=== PATIENT | female | born 1955 | race Caucasian/White ===

== ENCOUNTER 2016-07-05 18:14 | Emergency (ER) | payer OTHER ==
[2016-07-05 18:39] LABS: URINE MUCUS NONE SEEN (Up to 25%)
[2016-07-05 18:50] LABS: URINE APPEARANCE CLEAR; URINE COLOR YELLOW; URINE LEUKOCYTE ESTERASE TRACE (NEGATIVE); URINE NITRITE NEGATIVE (NEGATIVE); URINE PROTEIN NEGATIVE (NEG - TRACE)
[2016-07-05 18:51] LABS: URINE BACTERIA <10 ORGANISMS/hpf (<10/hpf); URINE BILIRUBIN NEGATIVE (NEGATIVE); URINE BLOOD TRACE (NEGATIVE); URINE GLUCOSE NORMAL (NEGATIVE); URINE KETONE NEGATIVE (NEGATIVE); URINE RBC 0-5/hpf (0-5/hpf); URINE SQUAMOUS EPITHELIAL CELL 0-5/hpf (<= 15/hpf); URINE UROBILINOGEN 0.2mg/dL (Normal) (NEG-1mg/dL); URINE WBC 0-4/hpf (0-4/hpf)
[2016-07-05] MEDS ORDERED: PHENAZOPYRIDINE 100 MG TABLET PO ONE (18:57)
[2016-07-05] MEDS ORDERED: NITROFURANTOIN MACROCRYSTAL 100 MG CAPSULE PO ONE (18:57)
--- NOTE | 2016-07-05 19:00 | ER NURSING DOCUMENTATION ---
Nurse's Notes [facility] Name:Afua Lanier Age:61 yrs Sex:Female :1955 Arrival Date:07/05/2016 Time:18:14 Bed3 Private MD:Kim Tavarez Diagnosis:Bladder Infection (UTI) Presentation: 07/05 18:23 Presenting complaint: Patient states: pt has left flank pain with urinary urgency. st Transition of care: Home. 18:23 Acuity: ROSE MARIE 3 st 18:23 Method Of Arrival: Private Vehicle st Historical: - Allergies: Sulfa (Sulfonamide Antibiotics); - Home Meds: 1. Zoloft Oral 2. CoQ-10 oral 3. multivitamin with minerals oral - PMHx: None; - PSHx: APPENDECTOMY; - Tetanus: > 10 years. - Ebola Screening: : Patient denies exposure to infectious person. Patient denies travel to an Ebola-affected area in the 21 days before illness onset. . - Social history: Smoking status: Patient states was never smoker of tobacco. Patient uses alcohol Patient/guardian denies using marijuana. Screenin:33 Infectious Disease Risk None. Abuse screen: Denies threats or abuse. Denies injuries st from another. pt feels safe at home. Nutritional screening: No deficits noted. Vital Signs: 18:20 BP 147 / 81; Pulse 79; Resp 12; Temp 98.8(O); Pulse Ox 89% on R/A; Weight 74.84 kg (R); arc Height 5 ft. 4 in. (162.56 cm) (R); Pain 5/10; 18:20 Body Mass Index 28.32 (74.84 kg, 162.56 cm) arc ED Course: 18:15 Patient arrived in ED. lm3 18:15 Kim Tavarez MD is Private Physician. lm3 18:23 Elyssa Sharma RN is Primary Nurse. st 18:[address] 18:29 Urine collected. Clean catch specimen. st 18:31 Beck Teixeira MD is Attending Physician. sc 18:33 Valuables Remains with patient Patient has correct armband on for positive st identification. Placed in gown. 18:47 Kim Tavarez MD is Referral Physician. sc Administered Medications: 18:47 Drug: Macrodantin 100 mg; Route: PO; st 18:58 Follow up: Response: Medication administered at discharge. st 18:47 Drug: Pyridium 200 mg; Route: PO; st 18:58 Follow up: Response: Medication administered at discharge. st 18:58 Drug: Macrodantin 100 mg; Route: PO; st 18:58 Follow up: Response: Pharmacy closed - take home med pack st 18:58 Drug: Pyridium 200 mg; Route: PO; st 18:59 Follow up: Response: Pharmacy closed - take home med pack Point of Care Testing: Urine Dip: 18:35 pH: 5.0; ; Specific [place]: 1.020; Ketones: Negative; Glucose: Negative; Protein: st Negative; Leukocytes: Trace; Nitrite: Negative ; Blood: Non Hemolyzed Trace; Bilirubin: Negative ; Urobilinogen: Normal Outcome: 18:48 Discharge ordered by . dc 18:59 Discharged to home ambulatory. st 18:59 Condition: stable 18:59 Discharge instructions given to patient, Instructed on discharge instructions, follow up and referral plans. medication usage, Prescriptions given X 1. 18:59 Patient [address] the ED. st Signatures: Elyssa Sharma, Beck Gaytan RN, MD MD dc Allyson Teixeira, Tushar Reg arc Jessica Kelly lm3
--- NOTE | 2016-07-05 19:00 | ER PHYSICIAN DOCUMENTATION ---
Physician Documentation [facility] Name:Afua Lanier Age:61 yrs Sex:Female :1955 Arrival Date:07/05/2016 Time:18:14 Bed3 Private MD:Kim Tavarez EDmaniBeck Disposition: 07/05/16 18:48 Discharged to Home/Self Care. Impression: Bladder Infection (UTI). - Condition is Good. - Discharge Instructions: BLADDER INFECTION, Female (Adult). - Prescriptions for Macrobid 100 mg Oral Capsule - take 100 milligram by ORAL route every 12 hours for 10 days; 20 capsule. - Medical Reconciliation form form. - Follow up: Kim Tavarez MD; When: 1 week; Reason: Recheck today's complaints. - Problem is new. - Symptoms are unchanged. HPI: 07/05 18:45 This 61 yrs old Female presents to ER via Private Vehicle with complaints of sc dysuria. 18:45 The patient presents with flank pain, urinary symptoms, dysuria, incontinence, urgency. sc Onset: The symptoms/episode began/occurred today. Associated signs and symptoms: The patient has no apparent associated signs or symptoms, Pertinent negatives: fever, vomiting. Severity of symptoms: At their worst the symptoms were moderate. Historical: - Allergies: Sulfa (Sulfonamide Antibiotics); - Home Meds: 1. Zoloft Oral 2. CoQ-10 oral 3. multivitamin with minerals oral - PMHx: None; - PSHx: APPENDECTOMY; - Tetanus: > 10 years. - Ebola Screening: : Patient denies exposure to infectious person. Patient denies travel to an Ebola-affected area in the 21 days before illness onset. . - Social history: Smoking status: Patient states was never smoker of tobacco. Patient uses alcohol Patient/guardian denies using marijuana. ROS: 18:46 Positive for urinary symptoms, flank pain. sc 18:46 Constitutional: Negative for fever, chills, and weight loss. sc Eyes: Negative for injury, pain, redness, and discharge. Cardiovascular: Negative for chest pain, palpitations, and edema. Respiratory: Negative for shortness of breath, cough, wheezing, and pleuritic chest pain. Abdomen/GI: Negative for abdominal pain, nausea, vomiting, diarrhea, and constipation. Back: Negative for injury and pain. Skin: Negative for injury, rash, and discoloration. 18:46 Neuro: Negative for headache, weakness, numbness, tingling, and seizure. Exam: Constitutional: This is a well developed, well nourished patient who is awake, alert, and in no acute distress. Head/Face: Normocephalic, atraumatic. Eyes: Pupils equal round and reactive to light, extra-ocular motions intact. Lids and lashes normal. Conjunctiva and sclera are non-icteric and not injected. Cornea within normal limits. Periorbital areas with no swelling, redness, or edema. Chest/axilla: Normal chest wall appearance and motion. Nontender with no deformity. No lesions are appreciated. Cardiovascular: Regular rate and rhythm with a normal S1 and S2. No gallops, murmurs, or rubs. Normal PMI, no JVD. No pulse deficits. Respiratory: Lungs have equal breath sounds bilaterally, clear to auscultation and percussion. No rales, rhonchi or wheezes noted. No increased work of breathing, no retractions or nasal flaring. Back: No spinal tenderness. No costovertebral tenderness. Full range of motion. Skin: Warm, dry with normal turgor. Normal color with no rashes, no lesions, and no evidence of cellulitis. 18:46 Neuro: Awake and alert, GCS 15, oriented to person, place, time, and situation. sc Cranial nerves II-XII grossly intact. Motor strength 5/5 in all extremities. Sensory grossly intact. Cerebellar exam normal. Normal gait. 18:46 Abdomen/GI: Inspection: abdomen appears normal, Bowel sounds: normal, Palpation: abdomen is soft and non-tender. 18:46 : CVA tenderness, on the left, Bladder: tenderness, that is mild. Vital Signs: 18:20 BP 147 / 81; Pulse 79; Resp 12; Temp 98.8(O); Pulse Ox 89% on R/A; Weight 74.84 kg (R); arc Height 5 ft. 4 in. (162.56 cm) (R); Pain 5/10; 18:20 Body Mass Index 28.32 (74.84 kg, 162.56 cm) arc MDM: 18:43 Patient medically screened. sc 18:47 Differential diagnosis: urinary tract infection. Data reviewed: vital signs, nurses sc notes, lab test result(s), and as a result, I will discharge patient, administer antibiotics. Counseling: I had a detailed discussion with the patient and/or guardian regarding: the historical points, exam findings, and any diagnostic results supporting the discharge/admit diagnosis, lab results, the need for outpatient follow up, for a recheck, with the patient's primary care provider. 07/05 18:52 Order name: UA W/ MICRO -CULTURE IF IND EDMS Dispensed Medications: 18:47 Drug: Macrodantin 100 mg; Route: PO; st 18:58 Follow up: Response: Medication administered at discharge. st 18:47 Drug: Pyridium 200 mg; Route: PO; st 18:58 Follow up: Response: Medication administered at discharge. st 18:58 Drug: Macrodantin 100 mg; Route: PO; st 18:58 Follow up: Response: Pharmacy closed - take home med pack st 18:58 Drug: Pyridium 200 mg; Route: PO; st 18:59 Follow up: Response: Pharmacy closed - take home med pack Point of Care Testing: Urine Dip: 18:35 pH: 5.0; ; Specific [place]: 1.020; Ketones: Negative; Glucose: Negative; Protein: st Negative; Leukocytes: Trace; Nitrite: Negative ; Blood: Non Hemolyzed Trace; Bilirubin: Negative ; Urobilinogen: Normal Signatures: Elyssa Sharma, RN RN Beck Ricks MD MD wa
[2016-07-06] MEDS ORDERED: ONDANSETRON HCL 4 MG/2 ML VIAL ONE (00:21)
[2016-07-06] MEDS ORDERED: KETOROLAC TROMETHAMINE 30 MG/ML VIAL ONE (01:07)
[2016-07-06] MEDS ORDERED: oxyCODONE/APAP 5/325 MG PREPAC 1 TAB TABLET PO ONE (01:45)
== END 2016-07-05 19:00 | disposition home or self-care (01) ==
LOC: ER 18:14
DX: N39.0 Urinary tract infection, site not specified (principal); R10.9 Unspecified abdominal pain
CPT/HCPCS: 81001; 99283; J1885; J2405

== ENCOUNTER 2016-07-05 23:46 | Emergency (ER) | payer OTHER ==
[2016-07-06 00:29] LABS: BASOPHIL# 0.1 X 10^3uL (0.0-0.1); BASOPHILS 1.5 % (0.0-2.0); EOSINOPHILS 0.5 % (0.0-6.0); HEMATOCRIT 46.1 % (36.0-48.0); HEMOGLOBIN 16.2 g/dL (12.0-16.0); LYMPHOCYTES 8.2 % (20.0-40.0); LYMPHOCYTES# 0.5 X 10^3uL (0.8-3.8); MEAN CELL VOLUME 89.7 fL (80.0-100.0); MEAN CORPUS. HGB CONCENTRATION 35.2 g/dL (32.0-36.0); MEAN CORPUSCULAR HEMOGLOBIN 31.6 pg (29.0-35.0); MEAN PLATELET VOLUME 8.1 fL (7.4-10.4); MONOCYTES 6.2 % (2.0-10.0); MONOCYTES# 0.4 X 10^3uL (0.2-1.0); NEUTROPHILS# 5.6 X 10^3uL (2.6-6.7); PLATELET COUNT 272 X 10^3uL (130-440); RED BLOOD COUNT 5.14 X 10^6uL (4.20-6.10); RED CELL DISTRIBUTION WIDTH 11.9 % (11.5-14.5); WHITE BLOOD COUNT 6.6 X 10^3uL (3.9-10.7)
[2016-07-06 00:34] LABS: ALBUMIN 4.2 g/dL (3.5-5.0); ALKALINE PHOSPHATASE 69 U/L (38-126); ALT 38 U/L (9-52); AST 26 U/L (14-36); BILIRUBIN, TOTAL 1.3 mg/dL (0.2-1.3); BLOOD UREA NITROGEN 15 mg/dL (7-17); CALCIUM 8.8 mg/dL (8.4-10.2); CHLORIDE 101 mmol/L (98-107); CREATININE 0.9 mg/dL (0.5-1.0); EST GLOMERULAR FILTRATION RATE > 60 mL/min; GLUCOSE 105 mg/dL (70-100); LIPASE 31 U/L (23-300); POTASSIUM 4.2 mmol/L (3.5-5.1); SODIUM 137 mmol/L (137-145); TOTAL PROTEIN 7.3 g/dL (6.3-8.2)
[2016-07-06 00:44] LABS: NEUTROPHILS 83.6 % (54.0-75.0)
--- NOTE | 2016-07-06 00:48 | CT REPORT ---
HISTORY: Bilateral flank pain, nausea and trouble urinating. COMPARISON: None. TECHNIQUE: This examination was performed using automated exposure control, adjustment of mA or kV according to patient size, and/or use of iterative reconstruction technique. Axial contiguous images of the abdome n and pelvis were obtained without oral or IV contrast, coronal reformat images also performed. FINDINGS: There is a partially visualized 6.1 cm AP x 8.2 cm TR mass in the right lower lobe with internal calc ifications. The right kidney is unremarkable. There are multiple nonobstructing left renal pelvic calculi. Mild l eft hydroureteronephrosis is seen secondary to a 3.5 mm calculus at the ureterovesicular junction. Multiple simple cysts are seen throughout the liver. The gallbladder is surgically absent. The sple en is unremarkable. There is no pancreatic mass or ductal dilatation. The adrenal glands are unrema rkable. There is no bowel obstruction. There is colonic diverticulosis with no evidence of diverticulitis. Th e appendix is normal well-visualized. There is no free intraperitoneal fluid or gas. There is no me senteric edema or inflammatory process. There is mild atherosclerotic calcification of the abdominal aorta. No pathologic adenopathy is identified. There is no bone lesion. A 1.9 cm subserosal uterin e fibroid is seen. IMPRESSION: 1. Mild left hydroureteronephrosis secondary to 3.5 mm calculus at the ureterovesicular junction. Le ft nephrolithiasis. 2. A partially visualized 8.2 cm well-circumscribed mass in the right lower lobe with internal calci fication and possible internal fat density. Differential includes a large hamartoma or calcifying met astatic disease. Completion CT chest is recommended on a nonurgent basis with follow-up surgical eval uation. 3. Colonic diverticulosis with no evidence of diverticulitis. Final Electronic Signature: This report was electronically signed by Brynn Mathew MD on 07/06/2016 12:46 AM. waleska /
[2016-07-06] MEDS ORDERED: HYDROmorphone HCL 1 MG/ML SYR ONE (01:05)
--- NOTE | 2016-07-06 01:42 | ER NURSING DOCUMENTATION ---
Nurse's Notes [facility] Name:Afua Lanier Age:61 yrs Sex:Female :1955 Arrival Date:07/05/2016 Time:23:46 Bed1 Private MD:Kim Tavarez Diagnosis:Bladder Infection (UTI);Ureterolithiasis - Renal Colic;Lung Mass Presentation: 07/05 23:54 Acuity: ROSE MARIE 3 mk2 07/06 00:05 Presenting complaint: Patient states: Pt was seen here in the E.D today with dysuria. mk2 Pt went home and progressed with increasing left flank pain and vomiting. Transition of care: Home. Care prior to arrival: None. 00:05 Method Of Arrival: Walk In [facility] Triage Assessment: 00:08 General: Appears uncomfortable, Behavior is cooperative, pleasant. Pain:. mk2 00:16 Pain: Complains of pain in left low back Pain does not radiate. Pain currently is 6 out mk2 of 10 on a pain scale. Neuro: No deficits noted. : Reports burning with urination. Historical: - Allergies: Sulfa (Sulfonamide Antibiotics); - Home Meds: 1. Zoloft 100 mg oral tab 2. CoQ-10 100 mg oral cap 3. multivitamin with minerals oral - PMHx: NONE; - PSHx: APPENDECTOMY; - Tetanus: unknown. - Ebola Screening: : Patient negative for fever greater than or equal to 101.5 degrees Fahrenheit, and additional compatible Ebola Virus Disease symptoms. Patient denies exposure to infectious person. Patient denies travel to an Ebola-affected area in the 21 days before illness onset. No symptoms or risks identified at this time. . - Immunization history: Flu Vaccine None. - Social history: Smoking status: Patient states former smoker of tobacco. Patient uses alcohol on a daily basis. Patient/guardian denies using street drugs. Screenin:18 Infectious Disease Risk None. Abuse screen: Denies threats or abuse. Nutritional mk2 screening: No deficits noted. Assessment: 00:18 See Triage Assessment done by same RN. 2 Vital Signs: 07/05 23:57 BP 127 / 68 (auto/); mk2 23:57 Pulse Ox 82% ; mk2 23:57 Resp 17; Temp 98.2; Pulse Ox 89% on R/A; Weight 76.66 kg; Height 5 ft. 4 in. (162.56 mk2 cm); Pain 6/10; 07/06 00:57 Pulse Ox 90% ; mk2 00:57 BP 115 / 61; Pulse 79; Resp 15; Temp 98.2; Pulse Ox 97% on R/A; Pain 4/10; mk2 01:39 BP 130 / 61; Pulse 69; Resp 14; Pulse Ox 89% on R/A; Pain 0/10; mk2 07/05 23:57 Body Mass Index 29.01 (76.66 kg, 162.56 cm) mk2 01:39 MD aware of low oxygen levels prior to discharging the pt. Pt in no distress. 2 ED Course: 07/05 23:50 Patient arrived in ED. [facility] 23:50 Kim Tavarez MD is Private Physician. [facility] 23:54 Beck Teixeira MD is Attending Physician. ok 23:54 Maribell Ireland, RN is Primary Nurse. 2 23:54 Triage completed. 2 07/06 00:18 Inserted peripheral IV: 20 gauge in left antecubital area and blood collected. mk2 00:18 Arm band placed on Bed in low position Call Light in Reach Gowned HOB Elevated Side mk2 rails up x1. 00:19 Valuables Remains with patient. Pulse ox on. NIBP on. Warm blanket given. mk2 00:25 CAT SCAN; [place]BD/[place] [id number] In Process Unspecified. EDMS 00:46 Kim Tavarez MD is Referral Physician. ok 07/07 11:13 CAT SCAN; [place] [id number] In Process Unspecified. EDMS Administered Medications: 07/06 00:16 Drug: Zofran 4 mg; Route: IVP; Infused Over: 2 mins; Site: left antecubital; mk2 00:40 Follow up: Response: Nausea is decreased mk2 00:58 Drug: NS 0.9% 1000 ml; Route: IV; Rate: bolus; Site: left antecubital; mk2 01:32 Follow up: IV Status: Completed infusion; IV Intake: 1000ml mk2 00:59 Drug: Toradol 30 mg; Route: IVP; Site: left antecubital; mk2 01:17 Follow up: Response: No adverse reaction mk2 00:59 CANCELLED (Physician Discretion): Dilaudid 1 mg IVP once mk2 01:39 Drug: HYDROcodone-acetaminophen (5mg/325 mg) 1-2 tabs 1 tabs; Route: PO; mk2 01:39 Follow up: Response: Pharmacy closed - take home med pack mk2 Intake: 01:32 IV: 1000ml; Total: 1000ml. mk2 Outcome: 00:47 Discharge ordered by . ok 01:39 Discharged to home ambulatory. mk2 01:39 Condition: improved 01:39 Discharge Assessment: Patient awake, alert and oriented x 3. No cognitive and/or functional deficits noted. Patient verbalized understanding of disposition instructions. 01:41 Instructed on discharge instructions, follow up and referral plans. medication usage, mk2 no drinking with medication, no driving heavy equipment, Prescriptions given X 1. 01:41 IV D/Francis 01:41 Patient left the ED. mk2 Signatures: Dispatcher [employer] EDMS Beck Teixeira MD MD sc Kruger, Maribell, RN RN mk2 Marla Todd
--- NOTE | 2016-07-06 01:42 | ER PHYSICIAN DOCUMENTATION ---
Physician Documentation [facility] Name:Afua Lanier Age:61 yrs Sex:Female :1955 Arrival Date:07/05/2016 Time:23:46 Bed1 Private MD:Kim Tavarez ED PhysicianChemaniBeck Disposition: 07/06/16 00:47 Discharged to Home/Self Care. Impression: Bladder Infection (UTI), Ureterolithiasis - Renal Colic, Lung Mass. - Condition is Fair. - Discharge Instructions: KIDNEY STONE w/ Colic. - Prescriptions for Hydrocodone- Acetaminophen 5-325 mg Oral Tablet - take 1 tablet by ORAL route every 6 hours As needed; 20 tablet. - Medical Reconciliation form form. - Follow up: Kim Tavarez MD; When: 2 - 3 days; Reason: Continuance of care. - Problem is new. - Symptoms have improved. HPI: 07/06 00:39 This 61 yrs old Female presents to ER via Walk In with complaints of Possible sc Kidney Stone. 00:39 The patient complains of pain in the left mid back. The pain does not radiate. Onset: sc The symptom(s)/episode began/occurred gradually, today. Associated signs and symptoms: Pertinent positives: vomiting. Severity of pain: At its worst the pain was moderate. The patient has been recently seen at the [facility], today, for similar complaints labs were performed. Historical: - Allergies: Sulfa (Sulfonamide Antibiotics); - Home Meds: 1. Zoloft 100 mg oral tab 2. CoQ-10 100 mg oral cap 3. multivitamin with minerals oral - PMHx: NONE; - PSHx: APPENDECTOMY; - Tetanus: unknown. - Ebola Screening: : Patient negative for fever greater than or equal to 101.5 degrees Fahrenheit, and additional compatible Ebola Virus Disease symptoms. Patient denies exposure to infectious person. Patient denies travel to an Ebola-affected area in the 21 days before illness onset. No symptoms or risks identified at this time. . - Immunization history: Flu Vaccine None. - Social history: Smoking status: Patient states former smoker of tobacco. Patient uses alcohol on a daily basis. Patient/guardian denies using street drugs. ROS: 00:40 Constitutional: Negative for fever, chills, and weight loss. sc Eyes: Negative for injury, pain, redness, and discharge. ENT: Negative for injury, pain, and discharge. Neck: Negative for injury, pain, and swelling. Cardiovascular: Negative for chest pain, palpitations, and edema. Respiratory: Negative for shortness of breath, cough, wheezing, and pleuritic chest pain. Back: Negative for injury and pain. MS/Extremity: Negative for injury and deformity. Skin: Negative for injury, rash, and discoloration. 00:40 Neuro: Negative for headache, weakness, numbness, tingling, and seizure. sc 00:40 Abdomen/GI: Positive for nausea, vomiting. 00:40 : Positive for urinary symptoms, flank pain, burning with urination. Exam: 00:41 : CVA tenderness, on the left, Bladder: is normal. sc Constitutional: This is a well developed, well nourished patient who is awake, alert, and in no acute distress. Head/Face: Normocephalic, atraumatic. Eyes: Pupils equal round and reactive to light, extra-ocular motions intact. Lids and lashes normal. Conjunctiva and sclera are non-icteric and not injected. Cornea within normal limits. Periorbital areas with no swelling, redness, or edema. ENT: Nares patent. No nasal discharge, no septal abnormalities noted. Tympanic membranes are normal and external auditory canals are clear. Oropharynx with no redness, swelling, or masses, exudates, or evidence of obstruction, uvula midline. Mucous membranes moist. Neck: Trachea midline, no thyromegaly or masses palpated, and no cervical lymphadenopathy. Supple, full range of motion without nuchal rigidity, or vertebral point tenderness. No meningismus. Chest/axilla: Normal chest wall appearance and motion. Nontender with no deformity. No lesions are appreciated. Cardiovascular: Regular rate and rhythm with a normal S1 and S2. No gallops, murmurs, or rubs. Normal PMI, no JVD. No pulse deficits. Respiratory: Lungs have equal breath sounds bilaterally, clear to auscultation and percussion. No rales, rhonchi or wheezes noted. No increased work of breathing, no retractions or nasal flaring. 00:45 Back: No spinal tenderness. No costovertebral tenderness. Full range of motion. sc 00:45 Abdomen/GI: Inspection: abdomen appears normal, Bowel sounds: normal, Palpation: abdomen is soft and non-tender. Vital Signs: 07/05 23:57 BP 127 / 68 (auto/); mk2 23:57 Pulse Ox 82% ; mk2 23:57 Resp 17; Temp 98.2; Pulse Ox 89% on R/A; Weight 76.66 kg; Height 5 ft. 4 in. (162.56 mk2 cm); Pain 6/10; 07/06 00:57 Pulse Ox 90% ; mk2 00:57 BP 115 / 61; Pulse 79; Resp 15; Temp 98.2; Pulse Ox 97% on R/A; Pain 4/10; mk2 01:39 BP 130 / 61; Pulse 69; Resp 14; Pulse Ox 89% on R/A; Pain 0/10; mk2 07/05 23:57 Body Mass Index 29.01 (76.66 kg, 162.56 cm) mk2 01:39 MD aware of low oxygen levels prior to discharging the pt. Pt in no distress. mk2 MDM: 07/05 23:54 Patient medically screened. ga 07/06 00:45 Differential diagnosis: nephrolithiasis, pyelonephritis, UTI. Data reviewed: vital sc signs, nurses notes, old medical records, lab test result(s), radiologic studies, CT scan, and as a result, I will discharge patient. Counseling: I had a detailed discussion with the patient and/or guardian regarding: the historical points, exam findings, and any diagnostic results supporting the discharge/admit diagnosis, lab results, radiology results, the need for outpatient follow up, with the patient's primary care provider, Needs CT chest with contrast, "completion CT" and thoracic surgery consult for possible removal of hamartoma in right chest. Medication response: The patient's symptoms have improved. 07/06 00:36 Order name: BASIC METABOLIC PANEL [facility] 07/06 00:37 Interpretation: Normal. ga 07/06 00:36 Order name: HEPATIC PANEL [facility] 07/06 00:37 Interpretation: Normal. ga 07/06 00:36 Order name: LIPASE [facility] 07/06 00:37 Interpretation: Normal. ga 07/06 00:37 Order name: LACTATE; Complete Time: 00:38 [facility] 07/06 00:37 Interpretation: Normal. ga 07/06 00:45 Order name: CBC AUTO DIF, MDIF/RMOR IF IND; Complete Time: 00:48 EDMS 05 00:48 Interpretation: Normal. sc 07/06 00:25 Order name: CAT SCAN; ABD/[place] [id number] EDMS 07/06 01:06 Interpretation: Abnormal. sc 07/06 00:06 Order name: Iv Saline Lock; Complete Time: 00:16 sc Dispensed Medications: 00:16 Drug: Zofran 4 mg; Route: IVP; Infused Over: 2 mins; Site: left antecubital; mk2 00:40 Follow up: Response: Nausea is decreased mk2 00:58 Drug: NS 0.9% 1000 ml; Route: IV; Rate: bolus; Site: left antecubital; mk2 01:32 Follow up: IV Status: Completed infusion; IV Intake: 1000ml mk2 00:59 Drug: Toradol 30 mg; Route: IVP; Site: left antecubital; mk2 01:17 Follow up: Response: No adverse reaction mk2 00:59 CANCELLED (Physician Discretion): Dilaudid 1 mg IVP once mk2 01:39 Drug: HYDROcodone-acetaminophen (5mg/325 mg) 1-2 tabs 1 tabs; Route: PO; mk2 01:39 Follow up: Response: Pharmacy closed - take home med pack mk2 Signatures: Beck Teixeira MD MD sc Kruger, Meg RN RN mk2
== END 2016-07-06 01:42 | disposition home or self-care (01) ==
LOC: ER 23:46
DX: N39.0 Urinary tract infection, site not specified (principal); N20.1 Calculus of ureter; N23 Unspecified renal colic; R91.8 Other nonspecific abnormal finding of lung field; R11.2 Nausea with vomiting, unspecified
CPT/HCPCS: 74176; 80048; 80076; 83605; 83690; 85025; 96361; 96374; 96375; 99284; J1170